=== PATIENT | male | born 1995 | race Two or more races ===

== ENCOUNTER 2023-11-24 04:44 | Emergency (ER) | payer OTHER ==
[~2023-11-24] VITALS: Ht 172.7 cm; Wt 90.7 kg
[2023-11-24] MEDS ORDERED: PROMETHAZINE HCL 50 MG/ML AMPUL IM STA (05:53)
[2023-11-24] MEDS ORDERED: MEPERIDINE HCL/PF 50 MG/ML VIAL IM STA (05:53)
[2023-11-24] MEDS ORDERED: HYOSCYAMINE SULFATE 0.125 MG TAB.SUBL SL STA (05:54)
[2023-11-24] MEDS ORDERED: KETOROLAC TROMETHAMINE 30 MG VIAL IV STA (05:54)
[2023-11-24] MEDS ORDERED: ONDANSETRON HCL 2 MG/ML VIAL IV STA (05:56)
[2023-11-24 06:29] LABS: URINE APPEARANCE Clear; URINE BILIRRUBIN Negative (NEGATIVE); URINE BLOOD Negative; URINE COLOR Yellow; URINE GLUCOSE Negative (NEGATIVE); URINE LEUKOCYTE Negative; URINE NITRATE Negative; URINE PROTEIN Negative (NEGATIVE)
[2023-11-24 06:33] LABS: URINE BACTERIA 40.3 uL (0.0-1933); URINE EPITHELIAL CELLS 3.5 uL (0.0-38.8); URINE RBC 4.5 uL (0.0-20.8); URINE WBC 8.9 uL (0.0-23.2)
[2023-11-24 07:00] LABS: HEMATOCRIT 40.7 % (39.0-48.0); HEMOGLOBIN 13.7 g/dL (13-16.00); MEAN CORPUSCULAR HEMOGLOBIN 27.2 pg (27.00-32.0); MEAN CORPUSCULAR HGB CONC 33.6 g/dl (32.0-36.0); PLATELET COUNT 234 K/uL (150-450); RED BLOOD COUNT 5.03 M/uL (4.00-6.00); RED CELL DISTRIBUTION WIDTH 14.3 % (11.5-14.5)
[2023-11-24 07:10] LABS: CREATININE SERUM 0.96 mg/dL (0.70-1.30); GFR 93.27; POTASSIUM 3.85 mEq/L (3.5-5.1)
[2023-11-24] MEDS ORDERED: TAMSULOSIN HCL 0.4 MG CAP PO STA (08:48)
== END 2023-11-24 09:43 | disposition home or self-care (01) ==
LOC: ER 04:44
DX: N20.1 Calculus of ureter (principal)